=== PATIENT | female | born 1965 | race Caucasian/White ===

== ENCOUNTER 2020-04-02 17:38 | Emergency (ER) | payer MEDICARE, MEDICAID, SELFPAY ==
[2020-04-02 17:40] VITALS: BP 138/79; PULSE 54; RESP 18; TEMP 35.8; O2SAT 100; BMI 25.3
--- NOTE | 2020-04-02 18:54 | EKG12_ITS ---
Test Reason : WEAKNESS Blood Pressure : / mmHG Vent. Rate : 041 BPM Atrial Rate : 041 BPM P-R Int : 140 ms QRS Dur : 104 ms QT Int : 546 ms P-R-T Axes : 014 -16 019 degrees QTc Int : 450 ms Marked sinus bradycardia Voltage criteria for left ventricular hypertrophy Abnormal ECG Confirmed by LENCHO JAMES, AARON ([id number]), mapping editor ITZEL HAMEED ([id number]) on 04/07/2020 1:28:27 PM Referred By: PHI Confirmed By:AARON MUSA MD
--- NOTE | 2020-04-02 18:54 | CT_ITS ---
STUDY: CT ABDOMEN AND PELVIS WITHOUT CONTRAST REASON FOR EXAM: Female, 54 years old. Right lower quadrant abdominal pain. History of bariatric surgery with additional duodenal surgery. History of craniotomy for removal of tumor. RADIATION DOSAGE (If Supplied By Facility): CTDIvol = ( 16.06 ) mGy, DLP = ( 1033.42 ) mGycm TECHNIQUE: Transaxial images were obtained from the dome of the diaphragm to the symphysis pubis without oral contrast, and without intravenous contrast. Sagittal and coronal images were reconstructed. Individualized dose optimization techniques were used for this CT. COMPARISON: None. FINDINGS: The visualized lung bases are unremarkable. The visualized portions of the heart are within normal limits. Normal liver. There are surgical clips in the gallbladder fossa consistent with a prior cholecystectomy. There are multiple benign calcified granulomata of the spleen. There is diffuse atrophy of the pancreas. Normal bilateral adrenal glands. Normal right kidney. Normal left kidney. Normal visualized ureters. There is evidence of gastric bypass surgery. There is a jejunostomy tube within the small bowel loop in the left upper quadrant. Normal small intestine. Normal colon. The appendix is visualized and appears normal. There is diffuse atherosclerotic calcification of the abdominal aorta, without a demonstrated aneurysm. Normal inferior vena cava. Normal retroperitoneum. Normal urinary bladder. Normal uterus and ovaries. There is no pelvic lymphadenopathy. No free air or free fluid is seen within the peritoneal cavity. There is marked stranding of the subcutaneous tissues of the flanks and ureter abdominal wall extending downward into the perineum and upper thighs. There are diffuse degenerative changes of the visualized lumbar spine. There are compression deformities of L4 and L5 which appear remote. CT/Abdomen/Pelvis W IV Cont ONLY IMPRESSION: 1. Normal appendix. 2. History of gastric bypass surgery. There is a balloon catheter within a loop of proximal jejunum. 3. Multiple splenic calcifications. 4. Status post cholecystectomy. 5. Diffuse stranding of the subcutaneous tissues with generalized edema. 6. Age-indeterminate compression deformities of the L4 and L5 vertebra. Electronically Signed: Tushar Cooper DO at 20:33 EDT Tel [phone], Service support ,
--- NOTE | 2020-04-02 18:56 | ED.VIS.GEN ---
History of Present Illness Chief Complaint: Weakness Informant: Patient Onset: Days Context: Gradual Onset Timing: Intermittent Narrative: Patient is a 54-year-old female with past medical history of panhypopituitarism (status post craniopharyngioma resection), vertigo, multiple endocrine disorders including secondary hypothyroid, central diabetes insipidus, adrenal insufficiency and growth hormone deficiency, meningioma, epilepsy, restless leg syndrome, atrial fibrillation, hypertension, hyperlipidemia, bradycardia, obstructive sleep apnea and dysphasia status post feeding tube placement presenting with generalized weakness and rash in her right lower quadrant. Patient states she went to the [facility] walk-in and was told that either her blood pressure or her heart rate was low and that she should go to the emergency room for further evaluation. She states for the past 3 to 4 days she is had an area of redness and pain in her right lower quadrant. She thinks it is actually smaller than it has been. Patient also states that she was recently hospitalized at [facility] but does not recall why. Chart review shows that she was hospitalized for urinary tract infection from 02/07 to 02/12 and discharged to [facility]. Positive blood cultures x2 for E. coli. Patient is no other complaints at this time. She states she is currently living with her mother and father. Past Medical History - Allergies and Home Meds Allergies/Adverse Reactions: Allergies Penicillins Allergy (Verified 04/02/20 17:39) Hives sulfamethoxazole [From Bactrim] Allergy (Verified 04/02/20 17:39) Hives trimethoprim [From Bactrim] Allergy (Verified 04/02/20 17:39) Hives Primary Care Physician: Des Pearl III, MD [Primary Care Provider] - Past Medical History: - - panhypopituitarism (status post craniopharyngioma resection), vertigo, multiple endocrine disorders including secondary hypothyroid, central diabetes insipidus, adrenal insufficiency and growth hormone deficiency, meningioma, epilepsy, restless leg syndrome, atrial fibrillation, bradycardia, hypertension, hyperlipidemia, obstructive sleep apnea and dysphasia Surgical History: gastric bypass, - - PEG tube Lives: With Family Alcohol: None Drugs: None Review of Systems General: Reports: Malaise, - - Generalized weakness. Denies: Chills, Fever, Sweats Eyes: Denies: Visual changes - bilaterally, Diplopia ENT: Denies: Rhinorrhea, Sore throat Cardiovascular: Denies: Chest pain, Palpitations Respiratory: Denies: Dyspnea, Cough, Dyspnea on exertion Gastrointestinal: Reports: Abdominal pain - RLQ. Denies: Nausea, Vomiting, Diarrhea, Melena, Hematochezia Genitourinary: Denies: Dysuria, Hematuria, Frequency Musculoskeletal: Denies: Back pain, Extremity Pain Skin: Reports: Rash - RLQ. Denies: Wounds Neurological: Reports: Weakness - generalized . Denies: Headache, Numbness Physical Exam Vital Signs/Narrative: Vital Signs Temp Pulse Resp BP Pulse Ox 04/02/20 17:40 96.5 F L 54 L 18 138/79 H 100 Inital Vital Signs reviewed: Yes General: Well nourished, Well developed, No Acute Distress Head: Normocephalic, Atraumatic Eyes: Perrl, EOMI ENT: Moist mucous membranes, No rhinorrhea Neck: Supple, Nontender Cardiovascular: Regular rhythm, No murmurs, Bradycardia Respiratory: No distress, CTA bilaterally, Chest nontender Abdomen: Soft, Nondistended, Normal bowel sounds, Tender - RLQ abdominal wall, - - No abdominal wall crepitus appreciated, no fluctuance or abscess. PEG tube LUQ, no surrounding erythema or drainage . Negative for: Guarding, Rebound tenderness : - - Normal perineum/external exam. No crepitus, wounds or erythema of the perineum noted Back: Nontender, Normal Inspection. Negative for: CVA tenderness Extremities: Nontender, No edema Skin: Rash - Approximately 5 cm irregular area of erythema with associated induration and tenderness to palpation in the right lower quadrant with some slight streaking of erythema towards the groin. Induration seems to extend to the pannus bilaterally. No associated crepitus or drainage noted. Neurological: Alert, Cranial nerves II-XII grossly intact, Normal Strength, Normal Sensation Psychological: Normal affect, Normal Mood Diagnostic/Tx/Re-eval Clinical Impression(s) from Imaging Studies Abdomen/Pelvis CT 04/02/20 18:54 IMPRESSION: 1. Normal appendix. 2. History of gastric bypass surgery. There is a balloon catheter within a loop of proximal jejunum. 3. Multiple splenic calcifications. 4. Status post cholecystectomy. 5. Diffuse stranding of the subcutaneous tissues with generalized edema. 6. Age-indeterminate compression deformities of the L4 and L5 vertebra. Electronically Signed: Tushar Cooper DO at 20:33 EDT Tel [phone], Service support , Chest X-Ray 04/02/20 19:58 IMPRESSION: No acute cardiopulmonary disease. There is minimal linear atelectasis at the left lung base. Electronically Signed: Tushar Cooper DO at 20:14 EDT Tel [phone], Service support , Laboratory Data 04/02/20 04/02/20 04/02/20 19:10 19:10 19:10 WBC 4.2 L RBC 2.99 L Hgb 9.2 L Hct 31.4 L MCV 105.0 H MCH 30.8 MCHC 29.3 L RDW Std Deviation 75.3 H RDW Coeff of Minnie 19.6 H Plt Count 138 L MPV 10.4 Immature Gran % (Auto) 0.700 Neut % (Auto) 71.9 H Lymph % (Auto) 22.2 [place] % (Auto) 4.8 Eos % (Auto) 0.2 Baso % (Auto) 0.2 Absolute Neuts (auto) 3.0 Absolute Lymphs (auto) 0.93 Nucleated RBC % 1.0 Differential Comment SCANNED PT 13.3 INR 1.1 APTT 30.0 Sodium 146 H Potassium 3.4 L Chloride 112 H Carbon Dioxide 32.0 Anion Gap 2 L BUN 22 H Creatinine 1.14 H Estim Creat Clear Calc 48.72 Est GFR (MDRD) Af Amer 64 Est GFR (MDRD) Non-Af 53 L BUN/Creatinine Ratio 19.3 Glucose 112 H Lactic Acid Calcium 8.4 L Troponin I < 0.015 Urine Color Urine Clarity Urine pH Ur Specific [place] Urine Protein Urine Glucose (UA) Urine Ketones Urine Occult Blood Urine Nitrite Urine Bilirubin Urine Urobilinogen Ur Leukocyte Esterase Urine RBC Urine WBC Ur Squamous Epith Cells Urine Bacteria Hyaline Casts Urine Mucus 04/02/20 04/02/20 20:30 22:00 WBC RBC Hgb Hct MCV MCH MCHC RDW Std Deviation RDW Coeff of Minnie Plt Count MPV Immature Gran % (Auto) Neut % (Auto) Lymph % (Auto) [place] % (Auto) Eos % (Auto) Baso % (Auto) Absolute Neuts (auto) Absolute Lymphs (auto) Nucleated RBC % Differential Comment PT INR APTT Sodium Potassium Chloride Carbon Dioxide Anion Gap BUN Creatinine Estim Creat Clear Calc Est GFR (MDRD) Af Amer Est GFR (MDRD) Non-Af BUN/Creatinine Ratio Glucose Lactic Acid 1.0 Calcium Troponin I Urine Color Yellow Urine Clarity Clear Urine pH 6.0 Ur Specific [place] 1.010 Urine Protein Negative Urine Glucose (UA) Normal Urine Ketones Negative Urine Occult Blood Negative Urine Nitrite Negative Urine Bilirubin Negative Urine Urobilinogen Normal Ur Leukocyte Esterase 100 H Urine RBC 0 SEEN Urine WBC 0-5 SEEN Ur Squamous Epith Cells 0 SEEN Urine Bacteria 1+ Hyaline Casts 0-5 SEEN Urine Mucus 0 SEEN - Rhythm Strip Rhythm Strip: bradycardia Rate: 41 Ectopy: None - EKG Initial EKG Interpretation: Sinus Bradycardia, - - Sinus bradycardia at a rate of 41 Left axis deviation Voltage criteria for LVH Normal intervals No prior EKG available for comparison - Medical Decision Making Patient evaluated for redness and pain of her right lower quadrant abdominal wall. She has associated induration but is otherwise well-appearing. I did obtain a CT of the abdomen pelvis for better visualization of her abdominal wall is this unusual presentation. Her lab work is largely unremarkable. Her CBC shows a very mild leukopenia of 4.2 with no associated bandemia. She is a very mild thrombocytopenia of 138 and anemia of 9.2. Chart review from [facility] shows that this anemia is her baseline/slightly improved, the leukopenia slightly worse than normal and the thrombocytopenia is also her baseline/slightly improved. BMP is significant for sodium of 146, potassium of 3.4, chloride of 112 and a creatinine of 1.14. Her lactate is 1.0 and her troponin is normal. Patient's creatinine is mildly elevated from her baseline which appears to be between 0.[address] of the abdomen and pelvis shows diffuse stranding of the subcutaneous tissue with generalized edema of the flanks and upper abdominal wall extending down to the perineum and upper thighs with no other acute process. Chest x-rays not show any acute process. Given patient's straining of her abdominal wall the concern is for an abdominal wall infection. There is no signs of free air so I think necrotizing fasciitis is much less likely however I did cover the patient broadly with antibiotics. Discussed with F surgery on-call, Dr. Garcia, who recommended patient go back to [facility] where she receives her care. And then discussed with surgery on-call at [place], Dr. Steven, who agrees that admission and transfer would be indicated however request medicine admission. I then discussed with hospitalist on-call, Dr. Juárez, who accepts the patient. Patient is agreeable with plan of care. She is hemodynamically stable in the emergency room. She has bradycardic throughout her ER stay but does have a history of this and is otherwise asymptomatic. ED Disposition - Plan for ED Patient: Disposition: Acute Care Hospital - Other Diagnosis: Abdominal wall cellulitis, Bradycardia, Pancytopenia Referrals: Des Pearl III, MD [Primary Care Provider] -
--- NOTE | 2020-04-02 18:58 | ED.RN ---
no old ekgs in [facility]
[2020-04-02 19:27] LABS: Absolute Lymphocyte Count 0.93 X10^3/uL (0.83-4.51); Basophil# 0.01 X10^3/uL; Basophil% 0.2 % (0-1); Eosinophil# 0.01 X10^3/uL; Eosinophils% 0.2 % (0-5); Hematocrit 31.4 % (37-47); Hemoglobin 9.2 g/dL (12.0-15.0); Lymphocyte # 0.93 X10^3/ul (4.0); Lymphocyte % 22.2 % (19-41); Mean Corp Hgb Conc 29.3 g/dL (32-36); Mean Corpuscular Hgb 30.8 pg (27.0-32.0); Mean Platelet Vol. 10.4 fl (6.2-12.0); Monocyte% 4.8 % (0-10); Neutrophil % 71.9 % (47-70); POSITIVE MORPHOLOGY YES; Platelet Count 138 K/mm3 (150-450); RBC Distribution Width CV 19.6 % (11.6-14.6); RBC Distribution Width SD 75.3 fl (35.1-43.9); Red Blood Count 2.99 M/mm3 (4.2-5.4); White Blood Count 4.2 K/mm3 (4.4-11.0)
[2020-04-02 19:29] LABS: Differential Indicated SCAN CRITERIA MET
[2020-04-02 19:44] LABS: Anion Gap 2 (5-15); BUN 22 mg/dL (7-18); BUN/Creat Ratio 19.3 RATIO (10-20); Calcium,Total 8.4 mg/dL (8.5-10.1); Chloride 112 mmol/L (98-107); Creatinine, Serum 1.14 mg/dL (0.55-1.02); EST Glomerular Filtration Rate 53 mL/min (>60); Est Glom Filt Rate - Afr Amer 64 mL/min (>60); Estimated Creatinine Clearance 48.72 ml/min; Glucose 112 mg/dL (74-106); Potassium 3.4 mmol/L (3.5-5.1); Sodium Level 146 mmol/L (136-145)
[2020-04-02 19:45] VITALS: BP 124/75; PULSE 43; RESP 12; O2SAT 100
[2020-04-02 19:47] LABS: International Normalized Ratio 1.1; Prothrombin Time (Protime)PT. 13.3 SECONDS (11.7-14.9)
--- NOTE | 2020-04-02 19:58 | RAD_ITS ---
STUDY: X-RAY CHEST REASON FOR EXAM: Female, 54 years old. Weakness. TECHNIQUE: Single AP portable view of the chest. COMPARISON: None. FINDINGS: There is a limited inspiratory effort. There is mild linear atelectasis at the left lung base. The lungs are otherwise clear. There is no demonstrated pleural abnormality. Normal size heart. Normal mediastinum and mae. Normal visualized pulmonary arteries. Normal visualized aortic arch and descending thoracic aorta. The thoracic spine is obscured by the mediastinum. Normal visualized ribs, clavicles, and shoulders. There is no demonstrated abnormality of the visualized soft tissue structures of the upper abdomen. RAD/Chest 1 View (Portable) IMPRESSION: No acute cardiopulmonary disease. There is minimal linear atelectasis at the left lung base. Electronically Signed: Tushar Cooper DO at 20:14 EDT Tel [phone], Service support ,
[2020-04-02 20:07] LABS: Differential Comment SCANNED
[2020-04-02 20:32] LABS: Mucous, Urine 0 SEEN /hpf (<or=2+); Red Blood Cells-Urine 0 SEEN /hpf (0-5); Squamous Epithelial Cells - UA 0 SEEN /hpf (5-10)
[2020-04-02 20:35] LABS: Color, Urine Yellow (Yellow); Glucose, Dipstick Normal (Normal); Ketone-Dipstick Negative (Negative); Leukocyte Esterase-Dipstick 100 /ul (Negative); Nitrite-Dipstick Negative (Negative); Occult Blood-Urine Negative /ul (Negative); Protein-Dipstick Negative (Negative); Urine Bilirubin Dipstick Negative (Negative); Urine Clarity Clear (Clear); Urine Urobilinogen Normal (Normal)
[2020-04-02 20:52] LABS: Bacteria 1+ /hpf (None Seen); Hyaline Cast 0-5 SEEN /lpf (0-5); White Blood Cells 0-5 SEEN /hpf (0-5)
[2020-04-02 21:06] VITALS: BP 123/70; PULSE 41; RESP 14; O2SAT 98
--- NOTE | 2020-04-02 21:46 | ED.RN ---
called dad to update on pt transfer
[2020-04-02 22:22] VITALS: BP 132/84; PULSE 40; RESP 12; TEMP 35.4; O2SAT 98
[2020-04-02 23:18] VITALS: BP 121/59; PULSE 50; RESP 18; TEMP 35.4; O2SAT 98
[2020-04-02 23:29] VITALS: BP 121/69; PULSE 50; RESP 18; TEMP 35.4; O2SAT 98
== END 2020-04-03 00:16 | disposition short-term general hospital (02) ==
LOC: ED 18:59
PROVIDERS: Emergency Provider Emergency Medicine; PCP Family Medicine
DX: L03.311 Cellulitis of abdominal wall (principal); R00.1 Bradycardia, unspecified; D61.818 Other pancytopenia; I10 Essential (primary) hypertension; E23.2 Diabetes insipidus; E23.0 Hypopituitarism; D32.9 Benign neoplasm of meninges, unspecified; E03.8 Other specified hypothyroidism; E78.5 Hyperlipidemia, unspecified; I48.91 Unspecified atrial fibrillation; E27.40 Unspecified adrenocortical insufficiency; G25.81 Restless legs syndrome; G47.33 Obstructive sleep apnea (adult) (pediatric); G40.909 Epilepsy, unspecified, not intractable, without status epilepticus; Z86.19 Personal history of other infectious and parasitic diseases; Z87.440 Personal history of urinary (tract) infections; Z93.1 Gastrostomy status; Z98.84 Bariatric surgery status; Z79.899 Other long term (current) drug therapy
CPT/HCPCS: 71045; 74177; 80048; 81001; 83605; 84484; 85025; 85610; 85730; 87040; 93005; 96365; 96366; 96367; 96368; 99285; J7040; J7050; Q9967; A4216; J0696

== ENCOUNTER 2020-12-08 13:21 | Emergency (ER) | payer MEDICARE, MEDICAID, SELFPAY ==
[2020-12-08] VITALS (12 sets, daily range): BP systolic 112–136; BP diastolic 72–85; PULSE 63–89; RESP 12–18; TEMP 36.6–37.2; O2SAT 45–98; BMI 20.4
--- NOTE | 2020-12-08 13:42 | EKG12_ITS ---
Test Reason : WOUND Blood Pressure : / mmHG Vent. Rate : 070 BPM Atrial Rate : 070 BPM P-R Int : 146 ms QRS Dur : 104 ms QT Int : 438 ms P-R-T Axes : 015 -18 129 degrees QTc Int : 473 ms Normal sinus rhythm Left ventricular hypertrophy with repolarization abnormality Abnormal ECG Confirmed by JORDYN JAMES, NORMAN ([id number]), editorial director ITZEL HAMEED ([id number]) on 12/10/2020 9:39:30 AM Referred By: CARLOS Confirmed By:NORMAN COBB MD
--- NOTE | 2020-12-08 13:43 | EX.ED.DYSGE1 ---
HPI History of Present Illness Chief Complaint: Wound Informant: patient Narrative Narrative: Patient presents with an abdominal wound. She states is been there for at least 3 months. She has not mentioned this to her doctor. She finally saw somebody today who recommended she come to the ER to have wound care take a look at this wound. She denies any fevers. It has been draining some material. She states is not painful at this time. Patient tells me she has a history of leukemia and gets infusions of medications but she does not know what they are. She does have a left arm PICC line in place. According to her chart she has a history of panhypopituitarism (status post craniopharyngioma resection), vertigo, multiple endocrine disorders including secondary hypothyroid, central diabetes insipidus, adrenal insufficiency and growth hormone deficiency, meningioma, epilepsy, restless leg syndrome, atrial fibrillation, hypertension, hyperlipidemia, bradycardia, obstructive sleep apnea [facility] Medical History (Updated 12/08/20 @ 16:[address] Vj Carter MD) Asthma Brain tumor Diabetes insipidus Hypothyroidism Osteoporosis Seizures Sleep apnea Home Medications alendronate 70 mg PO QWEEK 04/02/20 [History Last Taken Unknown] calcium carbonate-vitamin D3 1 ea PO DAILY 04/02/20 [History Last Taken Unknown] cholestyramine-aspartame 4 gm PO DAILY 04/02/20 [History Last Taken Unknown] copper gluconate 2 mg PO BID 04/02/20 [History Last Taken Unknown] copper gluconate 2 mg PO DAILY 04/02/20 [History Last Taken Unknown] cyanocobalamin (vitamin B-12) 1,000 mcg PO DAILY 04/02/20 [History Last Taken Unknown] desmopressin 0.1 mg PO BID 04/02/20 [History Last Taken Unknown] ferrous sulfate 325 mg PO BIDCM 04/02/20 [History Last Taken Unknown] hydrocortisone 5 mg PO 1400 04/02/20 [History Last Taken Unknown] hydrocortisone 15 mg PO 0900 04/02/20 [History Last Taken Unknown] levetiracetam 250 mg PO BID 04/02/20 [History Last Taken Unknown] levothyroxine 250 mcg PO 0600 04/02/20 [History Last Taken Unknown] loperamide 2 mg PO 4X/DAY PRN 04/02/20 [History Last Taken Unknown] magnesium oxide 400 mg PO DAILY 04/02/20 [History Last Taken Unknown] melatonin 5 mg PO QHS 04/02/20 [History Last Taken Unknown] podnbyfwxjul-sgsc-lncep acid 1 ea PO DAILY 04/02/20 [History Last Taken Unknown] pantoprazole 40 mg PO 0600 04/02/20 [History Last Taken Unknown] potassium chloride 20 meq PO DAILY 04/02/20 [History Last Taken Unknown] pyridoxine (vitamin B6) 50 mg PO DAILY 04/02/20 [History Last Taken Unknown] thiamine HCl (vitamin B1) 100 mg PO DAILY 04/02/20 [History Last Taken Unknown] torsemide 20 mg PO DAILY 04/02/20 [History Last Taken Unknown] Allergy/AdvReac Type Severity Reaction Status Date / Time Penicillins Allergy Hives Verified 12/08/20 13:24 sulfamethoxazole Allergy Hives Verified 12/08/20 13:24 [From Bactrim] trimethoprim [From Bactrim] Allergy Hives Verified 12/08/20 13:24 Surgical History (Updated 12/08/20 @ 14:16 by Kamila Mason) History of cholecystectomy Social History Smoking Status: Never smoker ROS ROS ED Constitutional Constitutional ED: Denies chills or fever(s) Eyes Eyes: Denies blurry vision, change in vision, diplopia or loss of vision ENT ENT ED: Reports other; Denies ear pain, rhinorrhea or sore throat Cardiovascular Cardiovascular: Denies chest pain, palpitations or racing heartbeat Respiratory/Chest Respiratory/Chest: Denies cough, dyspnea, dyspnea on exertion or sputum Gastrointestinal Gastrointestinal: Denies abdominal pain, diarrhea, nausea or vomiting Genitourinary Genitourinary ED: Denies dysuria, hematuria or urinary frequency Musculoskeletal Musculoskeletal: Denies back pain, myalgias or neck pain Integumentary Reports other Details: Abdominal wound Neurologic Neurologic: Denies headache(s) or weakness Psychiatric Psychiatric: Denies anxiety or depression Endocrine Endocrinology: Denies polydipsia or polyuria Hematologic/Lymphatic Hematologic/Lymphatic: Denies easy bleeding or easy bruising Allergic/Immunologic Allergic/Immunologic ED: Denies urticaria EXAM Physical Exam Const Vital Signs: 12/08/20 13:22 12/08/20 13:24 12/08/20 14:24 Temperature 98.1 F 98.1 F 98.9 F Temperature Source Temporal Temporal Temporal Pulse Rate 89 89 63 Respiratory Rate 16 16 12 Blood Pressure 119/82 H 119/82 H 122/85 H Blood Pressure Mean 94 94 97 Pulse Ox 98 98 98 Oxygen Delivery Method Room Air Room Air Room Air 12/08/20 14:42 12/08/20 15:00 12/08/20 15:20 Temperature 98.9 F 98.9 F Temperature Source Temporal Temporal Pulse Rate 63 71 Respiratory Rate 12 18 Blood Pressure 122/85 H 115/81 H Blood Pressure Mean 97 92 Pulse Ox 98 96 Oxygen Delivery Method Room Air Room Air Room Air 12/08/20 16:00 Temperature Temperature Source Pulse Rate 67 Respiratory Rate 18 Blood Pressure 127/81 H Blood Pressure Mean 96 Pulse Ox 97 Oxygen Delivery Method Room Air Positive well nourished and well developed General Appearance ED: well developed and NAD HEENT Reports normocephalic and head/scalp atraumatic normocephalic and atraumatic; Negative for tenderness Eyes PERRL and EOMs intact bilaterally General Eye ED: Negative for scleral icterus Neck supple and no JVD Chest Wall palpation of chest normal Chest: Negative for tenderness Resp normal respiratory effort and clear to auscultation bilaterally Effort and Inspection: Negative for respiratory distress Cardio regular rate and regular rhythm; Negative for no murmurs GI soft to palpation, non-tender and non-distended GI Narrative: The patient has a wound that starts at the right iliac crest and goes all the way over to under the umbilicus on the abdomen. The periumbilical portion of the wound is necrotic and black. Laterally the wound is not necrotic but it does have some slight purulent drainage. It is malodorous. Palpation: soft Back/Spine no CVA tenderness and no thoracic nor lumbar tenderness Cervical Spine: Negative for cervical spine tenderness Extremity normal to inspection General Extremety ED: Negative for tenderness Neuro oriented x3, CN's II-XII intact bilaterally and no sensory deficits noted Neuro Narrative: She has diffuse overall weakness which is chronic. Sensorium / Orientation: awake and alert Psych mental status grossly normal Skin no rashes or lesions noted MDM MDM MDM Narrative Medical decision making narrative: According to chart review, back in March 2020 she had an abdominal wall cellulitis of this area. She was transferred to [facility] and was admitted on antibiotics. Today, her laboratory studies are at baseline. Her white blood cell count is normal. INR 1.2. At this point to give her vancomycin. We currently do not have plastic surgery capabilities. She has been seen at [facility] so I feel it is best that she goes there. I spoke with Dr. Bautista and the patient will be accepted in transfer to [facility] for continued treatment of this wound and she will likely need debridement. Lab Data Labs: Laboratory Results - last 24 hr 12/08/20 12/08/20 12/08/20 14:35 14:35 14:35 WBC 5.6 RBC 3.01 L Hgb 9.0 L Hct 30.1 L MCV 100.0 H MCH 29.9 MCHC 29.9 L RDW Std Deviation 81.9 H RDW Coeff of Minnie 22.3 H Plt Count 86 L MPV 11.2 Immature Gran % (Auto) 3.400 H Neut % (Auto) 69.3 Lymph % (Auto) 15.8 L [place] % (Auto) 10.8 H Eos % (Auto) 0.2 Baso % (Auto) 0.5 Absolute Neuts (auto) 3.9 Absolute Lymphs (auto) 0.88 Nucleated RBC % 4.3 Anisocytosis 2+ PT 14.1 INR 1.2 APTT 36.1 Sodium 142 Potassium 3.8 Chloride 107 Carbon Dioxide 33.0 H Anion Gap 2 L BUN 25 H Creatinine 0.68 Estim Creat Clear Calc 79.65 Est GFR (MDRD) Af Amer 115 Est GFR (MDRD) Non-Af 95 BUN/Creatinine Ratio 36.7 H Glucose 81 Lactic Acid Calcium 8.1 L Total Bilirubin 0.30 AST 24 ALT 29 Alkaline Phosphatase 163 H Total Protein 5.6 L Albumin 2.1 L Globulin 3.5 Albumin/Globulin Ratio 0.6 L 12/08/20 14:35 WBC RBC Hgb Hct MCV MCH MCHC RDW Std Deviation RDW Coeff of Minnie Plt Count MPV Immature Gran % (Auto) Neut % (Auto) Lymph % (Auto) [place] % (Auto) Eos % (Auto) Baso % (Auto) Absolute Neuts (auto) Absolute Lymphs (auto) Nucleated RBC % Anisocytosis PT INR APTT Sodium Potassium Chloride Carbon Dioxide Anion Gap BUN Creatinine Estim Creat Clear Calc Est GFR (MDRD) Af Amer Est GFR (MDRD) Non-Af BUN/Creatinine Ratio Glucose Lactic Acid 0.6 Calcium Total Bilirubin AST ALT Alkaline Phosphatase Total Protein Albumin Globulin Albumin/Globulin Ratio Discharge Plan Triage Chief Complaint: Wound ED Provider: [facility] Dx/Rx/DC Orders Clinical Impression: Chronic wound infection of abdomen Prescriptions: No Action hydrocortisone 5 MG tablet 5 mg PO 1400 RF: 0 hydrocortisone 5 MG tablet 15 mg PO 0900 RF: 0 torsemide 20 MG tablet 20 mg PO DAILY RF: 0 loperamide 2 MG capsule 2 mg PO 4X/DAY PRN (Reason: Diarrhea) RF: 0 alendronate 70 MG tablet 70 mg PO QWEEK RF: 0 cyanocobalamin (vitamin B-12) 1,000 MCG tablet 1,000 mcg PO DAILY RF: 0 thiamine HCl (vitamin B1) 100 MG tablet 100 mg PO DAILY RF: 0 potassium chloride 20 MEQ tablet 20 meq PO DAILY RF: 0 levetiracetam 250 MG tablet 250 mg PO BID RF: 0 pantoprazole 40 MG tablet,delayed release (DR/EC) 40 mg PO 0600 RF: 0 ferrous sulfate 325 MG tablet 325 mg PO BIDCM RF: 0 levothyroxine 125 MCG tablet 250 mcg PO 0600 RF: 0 pyridoxine (vitamin B6) 50 MG tablet 50 mg PO DAILY RF: 0 desmopressin 0.1 MG tablet 0.1 mg PO BID RF: 0 copper gluconate 2 MG tablet 2 mg PO DAILY RF: 0 copper gluconate 2 MG tablet 2 mg PO BID RF: 0 cholestyramine-aspartame 4 GM powder in packet 4 gm PO DAILY RF: 0 calcium carbonate-vitamin D3 1 EACH tablet 1 ea PO DAILY RF: 0 melatonin 5 MG tablet 5 mg PO QHS RF: 0 iuhxpaweqqcw-hhte-vfwlq acid 1 EACH tablet 1 ea PO DAILY RF: 0 magnesium oxide 400 MG tablet 400 mg PO DAILY RF: 0 Primary Care Provider: Des Pearl III Referrals: Des Pearl III, MD [Primary Care Provider] - Disposition Disposition: Transfer to another type HCF Discharge Location: [facility]
[2020-12-08 14:52] LABS: Absolute Lymphocyte Count 0.88 X10^3/uL (0.83-4.51); Absolute Neutrophil Count 3.9 X10^3/uL (2.0-7.7); Basophil# 0.03 X10^3/uL; Basophil% 0.5 % (0-1); Eosinophil# 0.01 X10^3/uL; Eosinophils% 0.2 % (0-5); Hematocrit 30.1 % (37-47); Lymphocyte # 0.88 X10^3/ul (0.83-4.51); Lymphocyte % 15.8 % (19-41); Mean Corp Hgb Conc 29.9 g/dL (32-36); Mean Corpuscular Hgb 29.9 pg (27.0-32.0); Mean Platelet Vol. 11.2 fl (6.2-12.0); Monocyte% 10.8 % (0-10); NRBC Flagged by Analyzer 4.3 % (0-5); Neutrophil # 3.87 X10^3/uL (2.7-7.7); Neutrophil % 69.3 % (47-70); POSITIVE COUNT YES; POSITIVE MORPHOLOGY YES; Platelet Count 86 K/mm3 (150-450); RBC Distribution Width CV 22.3 % (11.6-14.6); RBC Distribution Width SD 81.9 fl (35.1-43.9); Red Blood Count 3.01 M/mm3 (4.2-5.4); White Blood Count 5.6 K/mm3 (4.4-11.0)
[2020-12-08 14:59] LABS: Differential Indicated SCAN CRITERIA MET
[2020-12-08 15:04] LABS: International Normalized Ratio 1.2; Prothrombin Time (Protime)PT. 14.1 SECONDS (11.7-14.9)
[2020-12-08 15:05] LABS: Partial Thromboplast Time 36.1 Seconds (24.1-36.2)
[2020-12-08 15:06] LABS: ALB/GLOB Ratio 0.6 RATIO (0.9-2.4); AST(SGOT) 24 U/L (15-37); Alanine Aminotransfer ALT/SGPT 29 U/L (13-56); Albumin, Serum 2.1 g/dL (3.2-5.0); Alkaline Phosphatase 163 U/L (45-117); Anion Gap 2 (5-15); BUN 25 mg/dL (7-18); BUN/Creat Ratio 36.7 RATIO (10-20); Calcium,Total 8.1 mg/dL (8.5-10.1); Chloride 107 mmol/L (98-107); Creatinine, Serum 0.68 mg/dL (0.55-1.02); EST Glomerular Filtration Rate 95 mL/min (>60); Est Glom Filt Rate - Afr Amer 115 mL/min (>60); Estimated Creatinine Clearance 79.65 ml/min; Globulin 3.5 g/dL (2.2-4.2); Glucose 81 mg/dL (74-106); Potassium 3.8 mmol/L (3.5-5.1); Protein, Total 5.6 g/dL (6.4-8.2); Sodium Level 142 mmol/L (136-145)
[2020-12-08 15:20] LABS: Anisocytosis 2+
[2020-12-08 15:30] LABS: Lactic Acid 0.6 mmol/L (0.4-1.9)
[2020-12-08] MEDS: Morphine 2 MG/ML Syringe IV (16:52)
[2020-12-08] MEDS: HYDROmorphone 1 MG/ML Syringe IV (18:40)
== END 2020-12-08 20:49 | disposition other institution (70) ==
PROVIDERS: Emergency Provider Emergency Medicine; PCP Family Medicine
DX: S31.109A Unspecified open wound of abdominal wall, unspecified quadrant without penetration into peritoneal cavity, initial encounter (principal); L08.9 Local infection of the skin and subcutaneous tissue, unspecified; X58.XXXA Exposure to other specified factors, initial encounter; Y93.9 Activity, unspecified; Y92.9 Unspecified place or not applicable; I10 Essential (primary) hypertension; E03.9 Hypothyroidism, unspecified; M81.0 Age-related osteoporosis without current pathological fracture; E23.2 Diabetes insipidus; E78.5 Hyperlipidemia, unspecified; E27.40 Unspecified adrenocortical insufficiency; I48.91 Unspecified atrial fibrillation; G25.81 Restless legs syndrome; G47.33 Obstructive sleep apnea (adult) (pediatric); G40.909 Epilepsy, unspecified, not intractable, without status epilepticus; J45.909 Unspecified asthma, uncomplicated; Z79.899 Other long term (current) drug therapy
CPT/HCPCS: 36592; 80053; 83605; 85025; 85610; 85730; 87040; 93005; 96365; 96375; 99285; J7050; A4216